=== PATIENT | female | born 1975 | race Caucasian/White ===

== ENCOUNTER 2018-09-09 13:46 | Emergency (ER) | payer OTHER ==
[~2018-09-09] VITALS: Ht 162.6 cm; Wt 97.1 kg
--- OUTSIDE RECORDS SUMMARY | 2018-09-09 13:51 | XMS REPORT | Continuity of Care Document ---
Author Author [facility] Organization [facility] Address Unknown Phone Unavailable Allergies There is no data. Medications There is no data. Problems Date Dx Coded Attending Type Code Diagnosis Diagnosed By 09/23/2015 NORY YOUNG Ot Z12.31 09/24/2015 NORY YOUNG Ot Z12.31 10/14/2015 NORY YOUNG Ot Z12.31 10/14/2015 NORY YOUNG Ot Z12.31 10/30/2015 NORY YOUNG Ot Z12.31 01/13/2017 NORY YOUNG Ot Z12.31 ENCNTR SCREEN MAMMOGRAM FOR MALIGNANT NE Procedures There is no data. Results There is no data. Encounters ACCT No. Visit Date/Time Discharge Status Pt. Type Provider Facility Loc./Unit Complaint [id number] 09/19/2015 11:17:00 09/19/2015 23:59:59 CLS Outpatient NORY YOUNG [facility] RAD SCREENING
[2018-09-09] MEDS ORDERED: ASPIRIN 81 MG CHEW (CHILDREN'S ASA) PO STA (14:01)
[2018-09-09 14:08] LABS: BASOPHILS % (AUTO) 0 % (0-10); EOSINOPHILS # (AUTO) 0.1 10^3/uL (0.0-0.3); EOSINOPHILS % (AUTO) 1 % (0-10); HEMATOCRIT 39 % (35-52); HEMOGLOBIN 13.3 G/DL (11.5-16.0); LYMPHOCYTES # (AUTO) 3.8 X 10^3 (1.0-4.0); LYMPHOCYTES % (AUTO) 41 % (12-44); MEAN CORPUSCULAR HEMOGLOBIN 32 PG (25-34); MEAN CORPUSCULAR HGB CONC 34 G/DL (32-36); MEAN CORPUSCULAR VOLUME 92 FL (80-99); MEAN PLATELET VOLUME 9.4 FL (7.4-10.4); MONOCYTES # (AUTO) 0.9 X 10^3 (0.0-1.0); MONOCYTES % (AUTO) 10 % (0-12); NEUTROPHILS # (AUTO) 4.6 X 10^3 (1.8-7.8); NEUTROPHILS % (AUTO) 49 % (42-75); PLATELET COUNT 356 10^3/uL (130-400); RED BLOOD COUNT 4.22 10^6/uL (4.35-5.85); RED CELL DISTRIBUTION WIDTH 12.3 % (10.0-14.5); WHITE BLOOD COUNT 9.4 10^3/uL (4.3-11.0)
[2018-09-09] MEDS ORDERED: ANTACID SUSP 30 ML UDC (MYLANTA) PO ONE (14:15)
[2018-09-09] MEDS ORDERED: LIDOCAINE 2% VISCOUS 15 ML UDC PO ONE (14:15)
--- NOTE | 2018-09-09 14:17 | Diagnostic Imaging Report ---
INDICATION: Chest pain and tightness for three days. COMPARISON: None. DISCUSSION: Single portable upright view of the chest was obtained. Normal heart size. No focal consolidation, pleural fluid, or pneumothorax. No osseous abnormality. IMPRESSION: 1. Negative portable chest. Dictated by: Dictated on workstation # [id number]
[2018-09-09 14:19] LABS: INR 0.9 (0.8-1.4); PROTHROMBIN TIME PATIENT 12.1 SEC (12.2-14.7)
[2018-09-09 14:24] LABS: ALANINE AMINOTRANSFERASE 15 U/L (0-55); ALBUMIN 4.4 GM/DL (3.2-4.5); ALKALINE PHOSPHATASE 61 U/L (40-136); BILIRUBIN,TOTAL 1.1 MG/DL (0.1-1.0); BUN/CREATININE RATIO 22; CALCIUM 9.8 MG/DL (8.5-10.1); CARBON DIOXIDE 25 MMOL/L (21-32); CHLORIDE 107 MMOL/L (98-107); CREATININE SERUM 0.79 MG/DL (0.60-1.30); GFR ESTIMATED > 60; GLUCOSE 94 MG/DL (70-105); MAGNESIUM 2.3 MG/DL (1.8-2.4); SODIUM 140 MMOL/L (135-145); TOTAL PROTEIN 7.7 GM/DL (6.4-8.2)
--- NOTE | 2018-09-09 14:37 | ED Chest Pain ---
General Chief Complaint: Chest Pain Stated Complaint: ELEVATED BP,CHEST PAIN Nursing Triage Note: ARRIVED VIA AMB TO ROOM 06. COMPLAINS OF CHEST PRESSURE WITH SOME SOA SINCE TUE. Nursing Sepsis Screen: No Definite Risk Source: patient Exam Limitations: no limitations History of Present Illness Date Seen by Provider: Sep 09, 2018 Time Seen by Provider: 13:50 Initial Comments Here with report of central chest pain/pressure for the last several days. It' s been pretty constant all day. She went to [facility] and was found to have hypertension and sent over here for further evaluation. Has no history of hypertension or chest pain. Denies nausea, vomiting, weakness, breathing problems or diaphoresis. Timing/Duration: 2-3 days Severity/Quality: moderate, burning, pressure Location: substernal, central Radiation: no radiation Activities at Onset: none Prior CP/Workup: no prior chest pain ASA po TRIMMER MACHINE: No NTG SL TRIMMER MACHINE: No Associated Symptoms: No abdominal pain, No back pain, No diaphoresis, No fatigue, No fever/chills, No nausea/vomiting, No shortness of breath, No weakness Allergies and Home Medications Allergies Coded Allergies: No Known Drug Allergies (Unverified , 09/09/18) Patient Home Medication List Home Medication List Reviewed: Yes Review of Systems Review of Systems Constitutional: see HPI; No chills; fever EENTM: No Symptoms Reported Respiratory: Denies Cough, Denies Shortness of Air Cardiovascular: Chest Pain; Denies Edema Gastrointestinal: Abdominal Pain; Denies Nausea, Denies Vomiting Genitourinary: No Symptoms Reported Musculoskeletal: no symptoms reported Skin: no symptoms reported All Other Systems Reviewed Negative Unless Noted: Yes Past Vcezoae-Gtotnm-Orahzk Hx Past Med/Social Hx: Reviewed Nursing Past Med/Soc Hx Patient Social History Alcohol Use: Rarely Uses Recreational Drug Use: No Smoking Status: Never a Smoker Recent Foreign Travel: No Contact w/Someone Who Travel: No Recent Infectious Disease Expo: No Recent Hopitalizations: No Past Medical History Surgeries: Yes Breast Respiratory: No Cardiac: No Neurological: No Genitourinary: No Gastrointestinal: No Musculoskeletal: No Endocrine: No HEENT: No Cancer: No Did You Recieve Any Treatments: No Psychosocial: No Integumentary: No Family Medical History Reviewed Nursing Family Hx Physical Exam Vital Signs Vital Signs - First Documented 09/09/18 14:00 Temp 97.8 Pulse 75 Resp 16 B/P (MAP) 175/100 (125) Pulse Ox 98 O2 Delivery Room Air Capillary Refill : Less Than 3 Seconds Height, Weight, BMI Height: 5'4.00" Weight: 214lbs. oz. 97.006455jl; BMI Method:Stated General Appearance: WD/WN, Anxious HEENT: PERRL/EOMI, Pharynx Normal Neck: Non Tender, Supple Respiratory: Lungs Clear, Normal Breath Sounds Cardiovascular: Regular Rate, Rhythm, No Murmur Gastrointestinal: Non Tender, Soft Extremity: Normal Range of Motion, Non Tender Neurologic/Psychiatric: Alert, Oriented x3 Skin: Normal Color, Warm/Dry Progress/Results/Core Measures Results/Orders Lab Results Laboratory Tests Test 09/09/18 14:00 Range/Units White Blood Count 9.4 4.3-11.0 10^3/uL Red Blood Count 4.22 L 4.35-5.85 10^6/uL Hemoglobin 13.3 11.5-16.0 G/DL Hematocrit 39 35-52 % Mean Corpuscular Volume 92 80-99 FL Mean Corpuscular Hemoglobin 32 25-34 PG Mean Corpuscular Hemoglobin Concent 34 32-36 G/DL Red Cell Distribution Width 12.3 10.0-14.5 % Platelet Count 356 130-400 10^3/uL Mean Platelet Volume 9.4 7.4-10.4 FL Neutrophils (%) (Auto) 49 42-75 % Lymphocytes (%) (Auto) 41 12-44 % Monocytes (%) (Auto) 10 0-12 % Eosinophils (%) (Auto) 1 0-10 % Basophils (%) (Auto) 0 0-10 % Neutrophils # (Auto) 4.6 1.8-7.8 X 10^3 Lymphocytes # (Auto) 3.8 1.0-4.0 X 10^3 Monocytes # (Auto) 0.9 0.0-1.0 X 10^3 Eosinophils # (Auto) 0.1 0.0-0.3 10^3/uL Basophils # (Auto) 0.0 0.0-0.1 10^3/uL Prothrombin Time 12.1 L 12.2-14.7 SEC INR Comment 0.9 0.8-1.4 Activated Partial Thromboplast Time 26 24-35 SEC D-Dimer 0.30 0.00-0.49 UG/ML Sodium Level 140 135-145 MMOL/L Potassium Level 4.0 3.6-5.0 MMOL/L Chloride Level 107 98-107 MMOL/L Carbon Dioxide Level 25 21-32 MMOL/L Anion Gap 8 5-14 MMOL/L Blood Urea Nitrogen 17 7-18 MG/DL Creatinine 0.79 0.60-1.30 MG/DL Estimat Glomerular Filtration Rate > 60 BUN/Creatinine Ratio 22 Glucose Level 94 70-105 MG/DL Calcium Level 9.8 8.5-10.1 MG/DL Corrected Calcium 9.5 8.5-10.1 MG/DL Magnesium Level 2.3 1.8-2.4 MG/DL Total Bilirubin 1.1 H 0.1-1.0 MG/DL Aspartate Amino Transf (AST/SGOT) 17 5-34 U/L Alanine Aminotransferase (ALT/SGPT) 15 0-55 U/L Alkaline Phosphatase 61 40-136 U/L Myoglobin 20.0 10.0-92.0 NG/ML Troponin I < 0.30 <0.30 NG/ML Total Protein 7.7 6.4-8.2 GM/DL Albumin 4.4 3.2-4.5 GM/DL My Orders Orders - CHANDLER ALLAN MD Cbc With Automated Diff (09/09/18 13:47) Magnesium (09/09/18 13:47) Chest 1 View, Ap/Pa Only (09/09/18 13:47) Ekg Tracing (09/09/18 13:47) Cardiac Profile 1 (09/09/18 13:47) Comprehensive Metabolic Panel (09/09/18 13:47) Myoglobin Serum (09/09/18 13:47) Protime With Inr (09/09/18 13:47) Partial Thromboplastin Time (09/09/18 13:47) O2 (09/09/18 13:47) Monitor-Rhythm Ecg Trace Only (09/09/18 13:47) Lipid Panel (09/10/18 06:00) Saline Lock/Iv-Start (09/09/18 13:47) Aspirin Chewable Tablet (Baby Aspirin Ch (09/09/18 14:01) Lidocaine 2% Viscous 15 Ml (Xylocaine Vi (09/09/18 14:15) Antacid Suspension (Mylanta Suspension (09/09/18 14:15) Metoprolol Succinate (Xl) Tab (Toprol Xl (09/09/18 14:15) Fibrin Degradation Products (09/09/18 14:38) Pantoprazole Injection (Protonix Injecti (09/09/18 15:00) Medications Given in ED Current Medications Medications Dose Ordered Sig/Kris Route Start Time Stop Time Status Last Admin Dose Admin Al Hydrox/Mg Hydrox/Simethicone 30 ml ONCE ONCE PO 09/09/18 14:15 09/09/18 14:16 DC 09/09/18 14:19 30 ML Lidocaine HCl 15 ml ONCE ONCE PO 09/09/18 14:15 09/09/18 14:16 DC 09/09/18 14:19 15 ML Metoprolol Succinate 25 mg ONCE ONCE PO 09/09/18 14:15 09/09/18 14:16 DC 09/09/18 14:19 25 MG Vital Signs/I&O 09/09/18 14:00 Temp 97.8 Pulse 75 Resp 16 B/P (MAP) 175/100 (125) Pulse Ox 98 O2 Delivery Room Air Blood Pressure Mean: 125 Progress Progress Note : Progress Note Seen and evaluated. IV, labs, EKG and chest x-ray ordered. ASA 324 mg by mouth given. GI cocktail and Toprol-XL 25 mg by mouth given. Monitor patient. D-dimer added. 1506: No acute findings and patient is without pain. Overall feels much better after GI cocktail. Protonix 40 mg IV was given. I did discuss the case with the volunteer services assistant on-call. Initial ECG Impression Date: Sep 09, 2018 Initial ECG Impression Time: 13:52 Initial ECG Rate: 70 Initial ECG Rhythm: Normal Sinus Initial ECG Impression: Normal Initial ECG Comparisson: No Previous ECG Available Comment Sinus rhythm with normal axis. No evidence of ST elevation SD. No previous available for comparison. Interpreted by me. Diagnostic Imaging Diagonstic Imaging: Xray Plain Films/CT/US/NM/MRI: chest Comments [facility]. [place], [place] NAME: LORRAINEMACKMARIZOL D MED REC#: [id number] PT STATUS: REG ER : 1975 PHYSICIAN: CHANDLER ALLAN MD ADMIT DATE: 09/09/18/ER Draft Date of Exam:09/09/18 CHEST 1 VIEW, AP/PA ONLY INDICATION: Chest pain and tightness for three days. COMPARISON: None. DISCUSSION: Single portable upright view of the chest was obtained. Normal heart size. No focal consolidation, pleural fluid, or pneumothorax. No osseous abnormality. IMPRESSION: 1. Negative portable chest. Dictated on workstation # [id number] Dict: 09/09/18 1413 Trans: 09/09/18 1417 KB [id number] Interpreted by: BAO BARKER MD Electronically signed by: Departure Impression Primary Impression: Chest pain Qualified Codes: R07.9 - Chest pain, unspecified Additional Impression: Gastroesophageal reflux disease Qualified Codes: K21.9 - Gastro-esophageal reflux disease without esophagitis Disposition: HOME, SELF-CARE Condition: Improved Departure-Patient Inst. Decision time for Depature: 15:10 Referrals: EVELIA JARAMILLO MD FACP FAC CCDS LESA BENAVIDES MD, M RIZWAN MD MARJI, BASHAR J MD NO,LOCAL PHYSICIAN (PCP) Primary Care Physician Patient Instructions: Chest Pain (DC), Acid Reflux (Gastroesophageal Reflux Disease), Adult (DC) Add. Discharge Instructions: All discharge instructions reviewed with patient and/or family. Voiced understanding. You should take medications as directed. You may take chgx-wyo-dgsdaoq omeprazole 20 mg daily for the next 2-6 weeks. Follow-up with the volunteer services assistant listed are of your choice within the next week or so for recheck and further evaluation. You should record her blood pressure daily and take those recordings to your appointment. He should also follow up with a surgeon of your choice or the one listed for further evaluation related to stomach problems. Return for worse pain, fever, vomiting, weakness, breathing problems or other concerns as needed. Scripts Metoprolol Tartrate (Metoprolol Tartrate) 25 Mg Tablet 25 MG PO BID for 14 Days, #28 TAB 0 Refills Prov: CHANDLER ALLAN MD 09/09/18 CHANDLER ALLAN MD Sep 09, 2018 14:37
[2018-09-09] MEDS ORDERED: PANTOPRAZOLE 40 MG (PROTONIX) VIAL IV ONE (15:00)
[2018-09-09] MEDS ORDERED: METO-333 PO (15:12)
[2018-09-09 15:18] VITALS: BP 148/91
== END 2018-09-09 15:18 | disposition home or self-care (01) ==
LOC: EDUNIT# 13:46 → ER 13:48
DX: R07.81 Pleurodynia (principal); K21.9 Gastro-esophageal reflux disease without esophagitis; I10 Essential (primary) hypertension
CPT/HCPCS: 36415; 71045; 80053; 83735; 83874; 84484; 85025; 85379; 85610; 85730; 93005; 93041

== ENCOUNTER → 2019-09-17 | Outpatient (CLI) | payer OTHER ==
[~2019-09-17] MED LIST: METO-333 PO
--- NOTE | 2019-09-18 12:33 | Diagnostic Imaging Report ---
INDICATION: Routine screening. Comparison is made with prior mammogram of 09/19/2015. 2-D and 3-D bilateral screening mammography was performed. The current study was also evaluated with a Computer Aided Detection (CAD) system. 3-D tomosynthesis was also performed and reviewed. FINDINGS: Both breasts are heterogeneously dense, limiting the sensitivity of mammography. Benign calcifications in the upper left breast are noted. No mass or malignant-appearing microcalcifications are seen. Axillae are unremarkable. IMPRESSION: No mammographic features suspicious for malignancy are identified. ACR BI-RADS Category 2: Benign findings. Result letter will be mailed to the patient. Note: At least 10% of breast cancer is not imaged by mammography. Dictated by: Dictated on workstation # [id number]
== END ==
LOC: RAD 15:52
PROVIDERS: ATTEND Nurse Practitioner
DX: Z12.31 Encounter for screening mammogram for malignant neoplasm of breast (principal)
CPT/HCPCS: 77067

== ENCOUNTER → 2020-10-01 | Outpatient (CLI) | payer OTHER ==
--- NOTE | 2020-10-01 13:14 | Diagnostic Imaging Report ---
INDICATION: Routine screening. COMPARISON: 09/17/2019 and 09/19/2015. TECHNIQUE: 2D and 3D bilateral screening mammography was performed with CAD. FINDINGS: Both breasts are heterogeneously dense, limiting the sensitivity of mammography. The parenchymal pattern is stable. No mass or malignant appearing microcalcifications are seen. The axillae are unremarkable. IMPRESSION: No mammographic features suspicious for malignancy are identified. ACR BI-RADS Category 1: Negative. Result letter will be mailed to the patient. Note: At least 10% of breast cancer is not imaged by mammography. Dictated by: Dictated on workstation # [id number]
== END ==
LOC: RAD 11:30
PROVIDERS: ATTEND Nurse Practitioner
DX: Z12.31 Encounter for screening mammogram for malignant neoplasm of breast (principal)
CPT/HCPCS: 77063; 77067

== ENCOUNTER 2021-03-22 11:50 | Emergency (ER) | payer OTHER ==
[~2021-03-22] VITALS: Ht 162 cm; Wt 94.8 kg
[2021-03-22] MEDS ORDERED: diphenhydrAMINE 50 MG/ML INJ (BENADRYL) IVP ONE (12:15)
[2021-03-22] MEDS ORDERED: cloNIDine 0.1 MG (CATAPRES) TAB PO ONE (12:15)
[2021-03-22] MEDS ORDERED: PROCHLORPERAZINE 10 MG/2ML INJ (COMPAZINE) IV ONE (12:15)
[2021-03-22] MEDS ORDERED: KETOROLAC 30 MG/ML VIAL IVP ONE (12:15)
--- NOTE | 2021-03-22 12:16 | ED Headache ---
General Chief Complaint: Head/Cervical Problems Stated Complaint: HEADACHE/BP 183/116 Source: patient Exam Limitations: no limitations History of Present Illness Date Seen by Provider: March 22, 2021 Time Seen by Provider: 12:15 Initial Comments To ER with reports of a severe frontal headache. This began about 1030 this morning, about an hour and 45 minutes ago. She has some nausea with it. No photophobia. No history of migraines. She had a headache throughout the day yesterday but it went away yesterday evening. When it recurred this morning it was sudden in onset and very intense. She does not have any neck pain or vision changes. No troubles walking or with speech or upper extremities. Her only medication is oral control which she has been on for a long time. Timing/Duration: 1 week Severity/Quality: moderate, severe Location: frontal Associated Symptoms: No confusion; nausea/vomiting; No sinus infection Allergies and Home Medications Allergies Coded Allergies: No Known Drug Allergies (Unverified , 09/09/18) Home Medications Metoprolol Tartrate 25 Mg Tablet, 25 MG PO BID Prescribed by: CHANDLER ALLAN on 09/09/18 1512 Patient Home Medication List Home Medication List Reviewed: Yes Review of Systems Review of Systems Constitutional: see HPI Eyes: No Symptoms Reported Ears, Nose, Mouth, Throat: no symptoms reported Respiratory: no symptoms reported Cardiovascular: no symptoms reported Genitourinary: no symptoms reported Musculoskeletal: no symptoms reported Skin: no symptoms reported Psychiatric/Neurological: No Symptoms Reported Past Bpskujs-Massfu-Bbgxpu Hx Patient Social History Recent Hopitalizations: No Past Medical History Surgeries: Yes Breast, Tonsillectomy Respiratory: No Cardiac: No Neurological: No Genitourinary: No Gastrointestinal: No Musculoskeletal: No Endocrine: No HEENT: No Cancer: No Did You Recieve Any Treatments: No Psychosocial: No Integumentary: No Physical Exam Vital Signs Vital Signs - First Documented 03/22/21 12:11 Temp 36.5 Pulse 89 Resp 18 B/P (MAP) 188/112 (137) Pulse Ox 95 Capillary Refill : Height, Weight, BMI Height: 5'4.00" Weight: 214lbs. oz. 97.352245db; BMI Method:Stated General Appearance: WD/WN, no apparent distress, other (Alert and oriented. M oves all extremities. Hypertensive at 183/118. Anxious appearing. Rates her headache as 7 out of 10.) Neck: non-tender, full range of motion Respiratory: no respiratory distress, no accessory muscle use Gastrointestinal: normal bowel sounds, non tender Extremities: normal range of motion, non-tender Psychiatric: alert, oriented x 3 Crainal Nerves: normal hearing, normal speech, PERRL Motor/Sensory: no motor deficit, no sensory deficit Skin: normal color, warm/dry Progress/Results/Core Measures Results/Orders Lab Results Laboratory Tests Test 03/22/21 12:21 Range/Units White Blood Count 9.8 4.3-11.0 10^3/uL Red Blood Count 4.38 3.80-5.11 10^6/uL Hemoglobin 13.7 11.5-16.0 g/dL Hematocrit 41 35-52 % Mean Corpuscular Volume 94 80-99 fL Mean Corpuscular Hemoglobin 31 25-34 pg Mean Corpuscular Hemoglobin Concent 33 32-36 g/dL Red Cell Distribution Width 12.2 10.0-14.5 % Platelet Count 357 130-400 10^3/uL Mean Platelet Volume 9.4 9.0-12.2 fL Immature Granulocyte % (Auto) 0 % Neutrophils (%) (Auto) 64 42-75 % Lymphocytes (%) (Auto) 30 12-44 % Monocytes (%) (Auto) 6 0-12 % Eosinophils (%) (Auto) 1 0-10 % Basophils (%) (Auto) 0 0-10 % Neutrophils # (Auto) 6.2 1.8-7.8 10^3/uL Lymphocytes # (Auto) 2.9 1.0-4.0 10^3/uL Monocytes # (Auto) 0.6 0.0-1.0 10^3/uL Eosinophils # (Auto) 0.1 0.0-0.3 10^3/uL Basophils # (Auto) 0.0 0.0-0.1 10^3/uL Immature Granulocyte # (Auto) 0.0 0.0-0.1 10^3/uL Sodium Level 139 135-145 MMOL/L Potassium Level 4.1 3.6-5.0 MMOL/L Chloride Level 105 98-107 MMOL/L Carbon Dioxide Level 23 21-32 MMOL/L Anion Gap 11 5-14 MMOL/L Blood Urea Nitrogen 15 7-18 MG/DL Creatinine 0.81 0.60-1.30 MG/DL Estimat Glomerular Filtration Rate > 60 BUN/Creatinine Ratio 19 Glucose Level 91 70-105 MG/DL Calcium Level 9.9 8.5-10.1 MG/DL Corrected Calcium 9.6 8.5-10.1 MG/DL Total Bilirubin 0.7 0.1-1.0 MG/DL Aspartate Amino Transf (AST/SGOT) 21 5-34 U/L Alanine Aminotransferase (ALT/SGPT) 17 0-55 U/L Alkaline Phosphatase 66 40-136 U/L Total Protein 7.6 6.4-8.2 GM/DL Albumin 4.4 3.2-4.5 GM/DL My Orders Orders - JUAREZ VIZCARRA APRN Ct Head Wo (03/22/21 12:13) Cbc With Automated Diff (03/22/21 12:13) Comprehensive Metabolic Panel (03/22/21 12:13) Ed Iv/Invasive Line Start (03/22/21 12:13) Ekg Tracing (03/22/21 12:13) Ketorolac Injection (Toradol Injection) (03/22/21 12:15) Prochlorperazine Injection (Compazine In (03/22/21 12:15) Diphenhydramine Injection (Benadryl Inje (03/22/21 12:15) Clonidine Tablet (Catapres Tablet) (03/22/21 12:15) Medications Given in ED Current Medications Medications Dose Ordered Sig/Kris Route Start Time Stop Time Status Last Admin Dose Admin Clonidine HCl 0.1 mg ONCE ONCE PO 03/22/21 12:15 03/22/21 12:16 DC 03/22/21 12:30 0.1 MG Diphenhydramine HCl 25 mg ONCE ONCE IVP 03/22/21 12:15 03/22/21 12:16 DC 03/22/21 12:29 25 MG Ketorolac Tromethamine 15 mg ONCE ONCE IVP 03/22/21 12:15 03/22/21 12:16 DC 03/22/21 12:29 15 MG Prochlorperazine Edisylate 5 mg ONCE ONCE IV 03/22/21 12:15 03/22/21 12:16 DC 03/22/21 12:30 5 MG Vital Signs/I&O 03/22/21 12:11 Temp 36.5 Pulse 89 Resp 18 B/P (MAP) 188/112 (137) Pulse Ox 95 Departure Communication (Admissions) 1330-headache is completely gone, she now rates it at 0 out of 10 and it was 7 out of 10. She remains alert and oriented very pleasant. Her blood pressure is down to 123/[address] scan is unremarkable which is very high on sensitivity for subarachnoid hemorrhage since this was done within 6 hours from the onset of this thunderclap headache. No nuchal rigidity. We will discharged home for outpatient follow-up. Impression Primary Impression: Headache Disposition: HOME, SELF-CARE Condition: Stable Departure-Patient Inst. Decision time for Depature: 13:27 Referrals: NO,LOCAL PHYSICIAN (PCP/Family) Primary Care Physician Patient Instructions: HEADACHE Add. Discharge Instructions: 1. Call your family doctor tomorrow to make an appointment to be seen for follow-up. Return to the ER for any fevers chills confusion or other concerns. All discharge instructions reviewed with patient and/or family. Voiced understanding. JUAREZ VIZCARRA APRN March 22, 2021 12:16
[2021-03-22 12:29] LABS: BASOPHILS % (AUTO) 0 % (0-10); EOSINOPHILS # (AUTO) 0.1 10^3/uL (0.0-0.3); EOSINOPHILS % (AUTO) 1 % (0-10); HEMATOCRIT 41 % (35-52); HEMOGLOBIN 13.7 g/dL (11.5-16.0); LYMPHOCYTES # (AUTO) 2.9 10^3/uL (1.0-4.0); LYMPHOCYTES % (AUTO) 30 % (12-44); MEAN CORPUSCULAR HEMOGLOBIN 31 pg (25-34); MEAN CORPUSCULAR HGB CONC 33 g/dL (32-36); MEAN CORPUSCULAR VOLUME 94 fL (80-99); MEAN PLATELET VOLUME 9.4 fL (9.0-12.2); MONOCYTES # (AUTO) 0.6 10^3/uL (0.0-1.0); MONOCYTES % (AUTO) 6 % (0-12); NEUTROPHILS # (AUTO) 6.2 10^3/uL (1.8-7.8); NEUTROPHILS % (AUTO) 64 % (42-75); PLATELET COUNT 357 10^3/uL (130-400); WHITE BLOOD COUNT 9.8 10^3/uL (4.3-11.0)
[2021-03-22 12:42] LABS: ALBUMIN 4.4 GM/DL (3.2-4.5)
[2021-03-22 12:43] LABS: CHLORIDE 105 MMOL/L (98-107); POTASSIUM 4.1 MMOL/L (3.6-5.0); SODIUM 139 MMOL/L (135-145)
[2021-03-22 12:44] LABS: CALCIUM 9.9 MG/DL (8.5-10.1)
[2021-03-22 12:45] LABS: GLUCOSE 91 MG/DL (70-105); TOTAL PROTEIN 7.6 GM/DL (6.4-8.2)
[2021-03-22 12:46] LABS: CARBON DIOXIDE 23 MMOL/L (21-32)
[2021-03-22 12:47] LABS: BILIRUBIN,TOTAL 0.7 MG/DL (0.1-1.0)
[2021-03-22 12:48] LABS: ALKALINE PHOSPHATASE 66 U/L (40-136)
[2021-03-22 12:49] LABS: CREATININE SERUM 0.81 MG/DL (0.60-1.30); GFR ESTIMATED > 60
[2021-03-22 12:50] LABS: BUN/CREATININE RATIO 19
[2021-03-22 12:51] LABS: ALANINE AMINOTRANSFERASE 17 U/L (0-55)
--- NOTE | 2021-03-22 13:07 | Diagnostic Imaging Report ---
PROCEDURE: CT head without contrast. TECHNIQUE: Multiple contiguous axial images were obtained through the brain without the use of intravenous contrast. Auto Exposure Controls were utilized during the CT exam to meet ALARA standards for radiation dose reduction. DATE: March 22, 2021. COMPARISON: None. INDICATION: 46-year-old female, severe headache for 2 hours. FINDINGS: There is mild cerebral volume loss. There is no hydrocephalus. There is no mass effect or midline shift. There is no acute intracranial hemorrhage. There is no abnormal extra-axial fluid collection. The visualized portions of the paranasal sinuses, mastoid air cells and middle ears are well aerated. IMPRESSION: 1. No identified acute intracranial abnormality. 2. Mild cerebral volume loss. Dictated by: Dictated on workstation # [id number]
[2021-03-22 13:31] VITALS: BP 142/99
== END 2021-03-22 13:31 | disposition home or self-care (01) ==
LOC: EDUNIT# 11:50 → ER 11:51
DX: R51.9 Headache, unspecified (principal)
CPT/HCPCS: 36415; 70450; 80053; 84703; 85025; 93005

== ENCOUNTER → 2021-10-06 | Outpatient (CLI) | payer OTHER ==
--- NOTE | 2021-10-06 20:03 | Diagnostic Imaging Report ---
INDICATION: Routine screening. COMPARISON is made with prior mammograms from 10/01/2020 and 09/19/2015. 2-D and 3-D bilateral screening mammography was performed with CAD. Both breasts are heterogeneously dense, limiting the sensitivity of mammography. The parenchymal pattern is stable. No mass or malignant-appearing microcalcifications are seen. The axillae are unremarkable. IMPRESSION: BI-RADS Category 1 No mammographic features suspicious for malignancy are identified. ACR BI-RADS Category 1: Negative. Result letter will be mailed to the patient. Note: At least 10% of breast cancer is not imaged by mammography. Dictated by: Dictated on workstation # [id number]
== END ==
LOC: RAD 15:35
PROVIDERS: ATTEND Surgery
DX: Z12.31 Encounter for screening mammogram for malignant neoplasm of breast (principal)
CPT/HCPCS: 77063; 77067

== ENCOUNTER → 2022-11-03 | Outpatient (CLI) | payer OTHER ==
--- NOTE | 2022-11-03 12:07 | Diagnostic Imaging Report ---
Indication: Routine screening. Comparison is made prior mammogram 10/06/2021 and 10/01/2020. 2-D and 3-D bilateral screening mammography was performed with CAD. CAD is utilized. The current study was also evaluated with a Computer Aided Detection (CAD) system. Both breasts are heterogeneously dense, limiting the sensitivity of mammography. There are tiny benign-appearing nodules bilaterally which appears stable. No spiculated mass or malignant-appearing microcalcifications are seen. Axillae are unremarkable. IMPRESSION: BI-RADS Category 2 No mammographic features suspicious for malignancy are identified. ACR BI-RADS Category 2: Benign findings. Result letter will be mailed to the patient. Note: At least 10% of breast cancer is not imaged by mammography. Dictated by: Dictated on workstation # [id number]
== END ==
LOC: RAD 07:30
PROVIDERS: ATTEND Surgery
DX: Z12.31 Encounter for screening mammogram for malignant neoplasm of breast (principal)
CPT/HCPCS: 77063; 77067